=== PATIENT | female | born 1970 | race Hispanic/Latino ===

== ENCOUNTER 2018-04-30 16:57 | Emergency (ER) | payer OTHER ==
[2018-04-30] MEDS: GI COCKTAIL 50ML BTL(HYOSCYAMINE/MAALOX/LIDOCAINE VISCOUS)(1:3:1) PO (19:32)
[2018-04-30] MEDS: KETOROLAC 30 MG/ML VIAL (J1885) IV (19:32)
[2018-04-30] MEDS: PANTOPRAZOLE 40MG INJ (PROTONIX) (C9113) IV (19:32)
[2018-04-30] MEDS: NS 1,000 ML IV (19:32)
[2018-04-30] MEDS: METOCLOPRAMIDE INJ 10MG/2ML VIAL (J2765) IV (19:32)
[2018-04-30 19:46] LABS: BASO % 0.7 % (0.0-1.0); EOS # 0.1 10^3/uL (0.0-0.50); EOS % 1.3 % (0.0-3.0); HEMATOCRIT 42.6 % (36.0-47.0); HEMOGLOBIN 14.4 g/dl (12.0-15.5); IMMATURE GRANULOCYTE % 0.2 % (0-3.0); LYMPH # 1.3 10^3/uL (1.5-4.5); LYMPH % 24.4 % (24.0-44.0); MEAN CORPUSCULAR HEMOGLOBIN 30.8 pg (27.0-33.0); MEAN CORPUSCULAR HGB CONC 33.8 g/dl (32.0-36.5); MEAN CORPUSCULAR VOLUME 91.2 fl (80.0-96.0); MONO # 0.5 10^3/uL (0.0-0.8); MONO % 8.7 % (0.0-5.0); NEUTROPHILS # 3.5 10^3/uL (1.8-7.7); NEUTROPHILS % 64.7 % (36.0-66.0); PLATELET COUNT, AUTOMATED 282 10^3/uL (150-450); RED BLOOD COUNT 4.67 10^6/uL (4.00-5.40); RED CELL DISTRIBUTION WIDTH 12.2 % (11.5-14.5); WHITE BLOOD COUNT 5.4 10^3/uL (4.0-10.0)
[2018-04-30 20:12] LABS: ANION GAP 7 MEQ/L (8-16); BLOOD UREA NITROGEN 16 MG/DL (7-18); CALCIUM LEVEL 8.6 MG/DL (8.5-10.1); CARBON DIOXIDE LEVEL 28 MEQ/L (21-32); CHLORIDE LEVEL 105 MEQ/L (98-107); GLOMERULAR FILTRATION RATE > 60.0 (>58); GLUCOSE, FASTING 89 MG/DL (70-100); POTASSIUM SERUM 3.9 MEQ/L (3.5-5.1); SODIUM LEVEL 140 MEQ/L (136-145)
== END 2018-04-30 21:02 | disposition home or self-care (01) ==
LOC: M ED 16:57
DX: G43.909 Migraine, unspecified, not intractable, without status migrainosus (principal); K29.70 Gastritis, unspecified, without bleeding; I10 Essential (primary) hypertension; Z79.899 Other long term (current) drug therapy
CPT/HCPCS: C9113